=== PATIENT | female | born 1985 | race Caucasian/White ===

== ENCOUNTER 2022-03-30 11:51 | Emergency (ER) | payer OTHER ==
[2022-03-30 13:23] LABS: HEMOGLOBIN 16.8 gm/dl (12.3-15.3); RED BLOOD COUNT 5.7 M/UL (4.00-5.10); WHITE BLOOD COUNT 11.3 K/UL (4.5-11.0)
[2022-03-30 13:48] LABS: BUN/CREATININE RATIO 17 (0-10)
[2022-03-30] MEDS ORDERED: CLEOCIN HCL300 MG PO (14:17)
[2022-03-30] MEDS ORDERED: OMNICEF 300 MG300 MG PO (14:17)
== END 2022-03-30 16:28 | disposition home or self-care (01) ==
LOC: ER1 11:51
PROVIDERS: Student in an Organized Health Care Education/Training Program
DX: L03.114 Cellulitis of left upper limb (principal); F17.210 Nicotine dependence, cigarettes, uncomplicated; Z88.2 Allergy status to sulfonamides
CPT/HCPCS: 73130; 73140; 80053; 85025; 85652; 86140; 96374; 96375; 99283; J0696; J3370; J7030